=== PATIENT | female | born 1980 | race Two or more races ===

== ENCOUNTER 2022-08-31 12:23 | Emergency (ER) | payer MEDICAID ==
[~2022-08-31] VITALS: Ht 134.6 cm; Wt 72.6 kg
[2022-08-31] MEDS ORDERED: AMOX-277 PO (13:37)
[2022-08-31] MEDS ORDERED: IBUP800T27 PO (13:37)
[2022-08-31 13:41] VITALS: BP 135/79
== END 2022-08-31 13:40 | disposition home or self-care (01) ==
LOC: ER 12:27
DX: H66.92 Otitis media, unspecified, left ear (principal); Z88.0 Allergy status to penicillin